=== PATIENT | female | born 1960 | race Caucasian/White ===

== ENCOUNTER 2020-02-17 09:47 | Outpatient (REF) | payer OTHER, SELFPAY ==
[2020-02-17 10:35] LABS: Glucose Urine UA NEG (NEG); Leukocyte Esterase Urine 3+ (NEG); Nitrite Urine POS (NEG); Specific Gravity - Urine 1.025 (1.005-1.025); Urine Blood 2+ (NEG); Urine Ketones NEG (NEG); Urine Protein TRACE MG/DL (NEG-TRACE)
[2020-02-17 10:40] LABS: Appearance Urine CLOUDY; Color Urine YELLOW
[2020-02-17 11:02] LABS: Bacteria Urine 1+ /LPF; Squamous Epithelial Cell Urine 1+ /LPF; WBC Urine TNTC /HPF (0-4)
== END 2020-02-17 09:48 | disposition home or self-care (01) ==
LOC: HO.LAB 09:47
PROVIDERS: Visit Provider Internal Medicine
DX: R30.0 Dysuria (principal)
CPT/HCPCS: 81001; 87086; 87088; 87186

== ENCOUNTER 2020-05-04 09:56 | Outpatient (REF) | payer OTHER, SELFPAY ==
--- NOTE | ~2020-05-04 | MM_ITS ---
EXAMINATION: MM SCREENING DIGITAL BREAST TOMOSYNTHESIS, BILATERAL CLINICAL INFORMATION: Screening. Asymptomatic. The lifetime risk of breast cancer based on the Tyrer-Cuzick Model is 8%. COMPARISON: Mammography: 04/29/2019, 10/12/2016, 10/11/2015, 11/21/2013 TECHNIQUE: Digital breast tomosynthesis is performed in both the craniocaudal and mediolateral oblique views along with computer-aided detection (CAD). Synthesized 2D images are generated from the tomosynthesis. FINDINGS: There are scattered areas of fibroglandular density (ACR BI-RADS breast composition Category b). There are no significant masses, abnormal calcifications, or other abnormalities. Axillary nodes are stable. The skin contours are smooth. MM/MM tomosynthesis screening BI IMPRESSION: No mammographic evidence of malignancy. ASSESSMENT: BI-RADS 2: Benign RECOMMENDATION: Routine annual mammography screening. This patient's information was entered into a reminder system with a target due date for their next mammogram.
== END 2020-05-04 09:57 | disposition home or self-care (01) ==
LOC: HO.MAMMO 09:56
PROVIDERS: PCP Internal Medicine; Visit Provider Internal Medicine
DX: Z12.31 Encounter for screening mammogram for malignant neoplasm of breast (principal)
CPT/HCPCS: 77063; 77067

== ENCOUNTER 2021-05-17 07:57 | Outpatient (REF) | payer OTHER, SELFPAY ==
--- NOTE | ~2021-05-17 | MM_ITS ---
EXAMINATION: MM SCREENING DIGITAL BREAST TOMOSYNTHESIS, BILATERAL CLINICAL INFORMATION: Screening. Asymptomatic. The lifetime risk of breast cancer based on the Tyrer-Cuzick Model is 6%. COMPARISON: Mammography: 05/04/2020, 04/29/2019, 10/12/2016 TECHNIQUE: Digital breast tomosynthesis is performed in both the craniocaudal and mediolateral oblique views along with computer-aided detection (CAD). Synthesized 2D images are generated from the tomosynthesis. FINDINGS: There are scattered areas of fibroglandular density (ACR BI-RADS breast composition Category b). There are no significant masses, abnormal calcifications, or other abnormalities. Parenchymal pattern is similar to prior studies. No developing density. Skin contours are smooth. MM/MM tomosynthesis screening BI IMPRESSION: There are no significant changes from prior study. ASSESSMENT: BI-RADS 1: Negative RECOMMENDATION: Routine annual mammography screening. This patient's information was entered into a reminder system with a target due date for their next mammogram.
== END 2021-05-17 07:58 | disposition home or self-care (01) ==
LOC: HO.MAMMO 07:57
PROVIDERS: PCP Internal Medicine; Visit Provider Internal Medicine
DX: Z12.31 Encounter for screening mammogram for malignant neoplasm of breast (principal)
CPT/HCPCS: 77063; 77067

== ENCOUNTER 2022-05-23 07:33 | Outpatient (REF) | payer OTHER, SELFPAY ==
--- NOTE | ~2022-05-23 | MM_ITS ---
EXAMINATION: MM SCREENING DIGITAL BREAST TOMOSYNTHESIS, BILATERAL CLINICAL INFORMATION: Screening. Asymptomatic. The lifetime risk of breast cancer based on the Tyrer-Cuzick Model is 6%. COMPARISON: Mammography: 05/17/2021, 05/04/2020, 04/29/2019 TECHNIQUE: Digital breast tomosynthesis is performed in both the craniocaudal and mediolateral oblique views along with computer-aided detection (CAD). Synthesized 2D images are generated from the tomosynthesis. Additional left view is provided. FINDINGS: There are scattered areas of fibroglandular density (ACR BI-RADS breast composition Category b). There are no significant masses, abnormal calcifications, or other abnormalities. Parenchymal pattern is similar to prior studies. There is no developing density or architectural abnormality. The axilla and skin contours are unremarkable. No significant changes. MM/MM tomosynthesis screening BI IMPRESSION: No mammographic evidence of malignancy. ASSESSMENT: BI-RADS 1: Negative RECOMMENDATION: Routine annual mammography screening. This patient's information was entered into a reminder system with a target due date for their next mammogram.
== END 2022-05-23 07:34 | disposition home or self-care (01) ==
LOC: HO.MAMMO 07:33
PROVIDERS: Visit Provider Internal Medicine
DX: Z12.31 Encounter for screening mammogram for malignant neoplasm of breast (principal)
CPT/HCPCS: 77063; 77067

== ENCOUNTER 2022-10-19 08:05 | Outpatient (AMB) | payer OTHER, SELFPAY ==
[2022-10-19 08:10] VITALS: BP 142/82; PULSE 74; TEMP 36.3; O2SAT 98; BMI 35.6
--- NOTE | 2022-10-19 08:10 | AM.OFFWIN_ITS ---
Intake Vital Signs 10/19/22 08:10 Height 5 ft 2 in Weight 194 lb 8 oz BMI 35.6 BP 142/82 H Blood Pressure Location Rt brachial Position Sitting Pulse 74 Pulse Source Pulse Oximeter Temp 97.4 F Temp Source Temporal Artery Scan Pulse Oximetry (%) 98 Intake Visit Reasons: EP, scalp itchiness Intake Note: pt is here for scalp itchiness all weekend, tried dry scalp shampoo with no relief Patient Tobacco Use Status: Former Tobacco user Allergies No Known Allergies [No Known Allergies*] Allergy (Verified 10/19/22 08:15) Do you need a note to return to daycare/school/sports/work: Yes HPI HPI Comments History of Present Illness Details 62 year female who presents with itchiness to the scalp. Suggestion to different shampoos [facility] Medical History GERD (gastroesophageal reflux disease) Surgical History History of gynecologic surgery History of gynecologic surgery Family History Father No problems noted. Mother Arthritis Maternal Grandmother Diabetes Sister Arthritis Father Medical history unknown Mother Arthritis Maternal Grandmother Diabetes Sister Arthritis Social History Housing: Apartment Patient Tobacco Use Status: Former Tobacco user service: No Current occupational status: employed Cognitive needs: No Hearing needs: No Vision needs: Yes Review of Systems Const All systems reviewed & are unremarkable except as noted in HPI and below Skin/Breast Details: He returns Physical Exam Vital Signs: Last Vital Signs Temp 97.4 F 10/19/22 08:10 Pulse 74 10/19/22 08:10 BP 142/82 H 10/19/22 08:10 Pulse Ox 98 10/19/22 08:10 BMI result Body Mass Index 35.6 Const General: no acute distress, alert and awake Skin Other: scalp with dry patches in crusting Assessment & Plan Assessment & Plan (1) Dermatitis: Code(s): L30.9 - Dermatitis, unspecified Plan patient's exam resembles psoriasis of the scalp. Will prescribe clobetasol shampoo and recommend follow-up with Dermatology. Discharge instructions, follow up and treatment are discussed with patient in my usual fashion. Alternatives in treatment are also discussed. The patient will return for worsening symptoms or as needed. Advised that any labs/imaging ordered will be followed up on and contact made if further treatment needed. Counseled that patient's condition may require further evaluation and/or treatment. Symptoms of concern for worsening disorder discussed in detail in my customary manner. Patient does verbalize understanding of the plan, there are no apparent barriers to communication. The patient is given the opportunity to ask questions and have them answered to his/her satisfaction Medications: New clobetasol 0.05% 1 appl topical DAILY 50 mL 0RF Coding Level of Care Code Est Pt Level 3 (07225) Diagnoses Dermatitis L30.9
== END 2022-10-19 08:34 | disposition home or self-care (01) ==
PROVIDERS: PCP Internal Medicine; Visit Provider Physician Assistant
DX: L30.9 Dermatitis, unspecified (principal)
CPT/HCPCS: 99213

== ENCOUNTER 2022-12-14 08:07 | Outpatient (AMB) | payer OTHER, SELFPAY ==
--- NOTE | 2022-12-14 08:10 | AM.OFFWIN_ITS ---
Intake Vital Signs 12/14/22 08:18 Height 5 ft 2 in BMI Reason not done Patient refused/unable BP 130/80 Blood Pressure Location Lt brachial Position Sitting Pulse 75 Pulse Source Pulse Oximeter Temp 97.5 F Temp Source Temporal Artery Scan Pulse Oximetry (%) 96 Oxygen Delivery Method Room Air Intake Visit Reasons: EP Scabs on head Intake Note: pt is here for c/o scabs on head Patient Tobacco Use Status: Former Tobacco user Allergies No Known Allergies [No Known Allergies*] Allergy (Verified 10/19/22 08:15) Do you need a note to return to daycare/school/sports/work: Yes HPI HPI Comments History of Present Illness Details 0916 62-year-old female presents with dry yvonne ques on her head, upper extremities back has history of psoriasis is not getting better with topical medications. Tells me they have been present for a while in the do not seem to be getting better. Denies fevers, chills, new medications, numbness, tingling. Physical exam with dry plaques with scales to bilateral upper extremities, scalp, back. Likely dermatitis vs psoriasis vs contact dermatitis unlikley SJS, TEN Plan- dc w/ prednisone, hydrocortisone cream. Educated patient on diagnosis and treatment plan, answered all question, patient verbalizes understanding. At this time patient will be discharged home, advised to return with new or worsening symptoms. Educated on worrisome signs and symptoms and when to return. At this time I feel comfortable discharge home. [facility] Medical History GERD (gastroesophageal reflux disease) Surgical History History of gynecologic surgery History of gynecologic surgery Family History Father No problems noted. Mother Arthritis Maternal Grandmother Diabetes Sister Arthritis Father Medical history unknown Mother Arthritis Maternal Grandmother Diabetes Sister Arthritis Social History Housing: Apartment Patient Tobacco Use Status: Former Tobacco user service: No Current occupational status: employed Cognitive needs: No Hearing needs: No Vision needs: Yes Review of Systems Const Details: Constitutional : No Weight loss, No Fever, No Chills, No Fatigue, No Malaise ENT/Mouth : No sore throat, No Rhinorrhea Eyes: No Eye Pain, No Swelling, No Redness Cardiovascular : No Chest Pain, No SOB, No Dyspnea on Exertion, No Orthopnea, No Edema, No Palpitations Respiratory : No Cough, No Sputum, No Wheezing Gastrointestinal : No Nausea, No Vomiting, No Diarrhea, No Constipation, No abdominal Pain, No Hematochezia, No Melena Genitourinary : No Dysuria, No Urinary Frequency, No Hematuria, Musculoskeletal : No joint pain, No Myalgias, No Joint Swelling Skin : + Skin Lesions, No rash Neuro : No Weakness, No Numbness, No Dizziness, No Headache Psych : No Anxiety/Panic, No Depression All other systems reviewed and are negative All systems reviewed & are unremarkable except as noted in HPI and below Physical Exam Vital Signs: Last Vital Signs Temp 97.5 F 12/14/22 08:18 Pulse 75 12/14/22 08:18 BP 130/80 12/14/22 08:18 Pulse Ox 96 12/14/22 08:18 Oxygen Delivery Method Room Air 12/14/22 08:18 vss Appearance: Alert.? Oriented X3.? No acute distress.? Head: Normocephalic, atraumatic, no step-offs or deformities Eyes: Pupils equal, round and reactive to light.? ENT: Pharynx normal.? Neck: Normal inspection.? Neck supple.? CVS: Normal heart rate and rhythm.? Pulses normal.? Respiratory: No respiratory distress.? Breath sounds normal.? Abdomen: Soft and nontender.? Skin: Skin warm and dry.? Normal skin color.? Normal skin turgor.? + dry plaques to UE, scalp and back. Extremities: No lower extremity edema.? No calf ttp. 5/5 strength to bilateral upper and lower extremities Neuro: Oriented X 3.? No motor deficit.? No sensory deficit. CN 2-12 intact Assessment & Plan Assessment & Plan (1) Psoriasis: Code(s): L40.9 - Psoriasis, unspecified Plan Take your medications as prescribed. If you were prescribed antibiotics today, it is important that you take your medication to their entirety, do not skip any doses, do not finish them early. Follow-up with your primary care provider this week. Return to the emergency department with new or worsening symptoms. Such as fevers, chills, chest pain, shortness of breath, nausea, vomiting, dizziness, headache, vision changes, lethargy In case of emergency call 911 Medications: New prednisone 40 mg (2 x 20 mg) PO DAILY 5 days 10 tabs 0RF hydrocortisone 1% (Anti-Itch (hydrocortisone)) 1 appl topical TID PRN 120 mL 0RF skin irritation Coding Level of Care Code Est Pt Level 3 (76691) Diagnoses Psoriasis L40.9
[2022-12-14 08:18] VITALS: BP 130/80; PULSE 75; TEMP 36.4; O2SAT 96
== END 2022-12-14 09:29 | disposition home or self-care (01) ==
PROVIDERS: PCP Internal Medicine; Visit Provider Physician Assistant
DX: L40.9 Psoriasis, unspecified (principal)
CPT/HCPCS: 99213

== ENCOUNTER 2023-03-22 09:57 | Outpatient (AMB) | payer OTHER, SELFPAY ==
--- NOTE | 2023-03-22 10:07 | A.OFFPC_ITS ---
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: No Accompanied by: Self / Same As Patient Allergies No Known Allergies [No Known Allergies*] Allergy (Verified 03/22/23 10:23) Medication List - Last Reconciled 03/22/23 by Maya Paulson MD clobetasol 0.05% 1 appl topical DAILY hydrocortisone 1% (Anti-Itch (hydrocortisone)) 1 appl topical TID PRN meloxicam 15 mg PO DAILY PRN 90 days omeprazole 20 mg PO DAILY 90 days Tobacco use date assessed: 03/22/23 Dental Screening Dental Screen Date: 03/22/23 Did you have a dental visit in the last 12 months?: Yes Did you have a dental problem in the last 6 months where you did not have access to dental care?: No Was dental information given to patient?: Patient has dentist HPI HPI Comments History of Present Illness0 Details This is a 62-year-old female that comes for her physical exam. Mammogram done 2022. She does not want a colonoscopy. Once Cologuard. Last Pap smear was over 5 years ago and will be sent again to OBGYN. No chest pain or shortness of breath. [facility] Medical History GERD (gastroesophageal reflux disease) Surgical History History of gynecologic surgery History of gynecologic surgery Family History Father No problems noted. Mother Arthritis Maternal Grandmother Diabetes Sister Arthritis Father Medical history unknown Mother Arthritis Maternal Grandmother Diabetes Sister Arthritis Social History Housing: Apartment Patient Tobacco Use Status: Former Tobacco user Tobacco use type: Cigarette e-Cigarette/Vaping Use: Never Used Second Hand Smoke Exposure: No service: No Current occupational status: employed Current occupational exposures/hazards: No Cognitive needs: No Hearing needs: No Vision needs: Yes Questionnaire PHQ-9 Over the last 2 weeks, how often have you been bothered by any of the following problems? 1. Little interest or pleasure in doing things: not at all 2. Feeling down, depressed, or hopeless: not at all 3. Trouble falling or staying asleep, or sleeping too much: not at all 4. Feeling tired or having little energy: not at all 5. Poor appetite or overeating: not at all 6. Feeling bad about yourself - or that you are a failure or have let yourself or your family down: not at all 7. Trouble concentrating on things, such as reading the newspaper or watching television: not at all 8. Moving or speaking so slowly that other people could have noticed. Or the opposite - being so fidgety or restless that you have been moving around a lot more than usual: not at all 9. Thoughts that you would be better off or of hurting yourself in some way: not at all Total score: 0 Depression Screening Interpretation: Negative Depression Screening Done: Yes 52948 - PHQ-9 Billing: Yes Source: Developed by Drs. Reilly Gleason, Carlie Lazar, Mao Melgoza and colleagues, with an educational abby from [employer]. Thrive Questionnaire Date Thrive assessed: 03/22/23 I am a: Patient What is your living situation today?: I have a steady place to live Within the past 12 months, did the food you bought not last and you didn't have the money to get more?: Never true Within the past 12 months, did you worry whether your food would run out before you got money to buy more?: Never true Do you have trouble paying for medicines?: No Do you have trouble getting transportation to medical appointments?: No Do you have trouble paying your heating and electricity bill?: No Do you have trouble taking care of your child, family member or friend?: No Do you have trouble with day-to-day activities such as bathing, preparing meals, shopping, managing finances, etc.?: No Are you currently unemployed and looking for a job?: No Are you interested in more education?: No Please select the resources that you would like help with: None Currently or been in a relationship where the following occur: no concerns reported THRIVE Score: 0 AUDIT C Alcohol Use Questionnaire (AUDIT-C) 1. How often do you have a drink containing alcohol?: Never Total Score: 0 HANNA-7 AMB Questionnaire HANNA-7 Date HANNA - 7 assessed: 03/22/23 Feeling nervous, anxious, or on edge: 0 = Not at all Not being able to stop or control worryin = Not at all Worrying too much about different things: 0 = Not at all Trouble relaxin = Not at all Being so restless that it is hard to sit still: 0 = Not at all Becoming easily annoyed or irritable: 0 = Not at all Feeling afraid as if something awful might happen: 0 = Not at all Total HANNA-7 score (0-4 normal; 5-9 mild; 10-14 moderate; 15-21 severe): 0 Source: Developed by Drs. Reilly Gleason, Carlie Lazar, Mao Melgoza and colleagues, with an educational abby from [employer]. HANNA-7 Assessment Billing HANNA-7 Assessment Tool: HANNA-7 Assessment 05912 Review of Systems Const All systems reviewed & are unremarkable except as noted in HPI and below Eyes Reports no additional complaints, Denies change in vision and Denies other visual disturbances Card Denies chest pain at rest, Denies chest pain with activity, Denies edema, Denies irregular heart rhythm, Denies claudication, Denies dyspnea, Denies dyspnea on exertion, Denies orthopnea, Denies paroxysmal nocturnal dyspnea and Denies slow heart rate Resp Denies cough, Denies dyspnea and Denies dyspnea on exertion GI Denies abdominal pain, Denies change in bowel habits, Denies excessive flatus, Denies nausea and Denies vomiting Denies urinary incontinence, Denies urinary hesitancy and Denies urinary urgency Musc Denies abnormal gait, Denies atrophy, Denies deformity and Denies limited range of motion Skin/Breast Denies bleeding lesions, Denies changing lesions and Denies rash Neuro Denies abnormal gait, Denies behavioral changes, Denies confusion and Denies lack of coordination Psych Denies behavioral changes and Denies confusion Physical exam (Primary Care) Vital Signs: Last Vital Signs BP 160/90 H 03/22/23 11:22 BMI result Body Mass Index 36.6 Tobacco/Smoking Status: Tobacco use Status Tobacco use date assessed 03/22/23 03/22/23 10:13 Patient Tobacco Use Status Former Tobacco user 03/22/23 10:08 Tobacco use type Cigarette 03/22/23 10:13 e-Cigarette/Vaping Use Never Used 03/22/23 10:13 PHQ-9: PHQ-9 Score PHQ-9: Total score 0 03/22/23 11:23 Depression Screening Interpretation: Negative Thrive Assessment: Date of Thrive Assessment Date Thrive assessed 03/22/23 03/22/23 10:13 Currently or been in a relationship where the following occur: no concerns reported Const General: No confusion Orientation/consciousness: patient oriented x3 and No confusion HENMT Head: Yes normal to inspection, Yes normocephalic and Yes atraumatic Ears: external ears normal Eyes General: appearance normal, both eyes and all related structures Eyelids: Yes eyelids normal Conjunctivae: conjunctivae normal Neck Neck: Yes normal visual inspection and Yes supple Resp Effort & Inspection: normal respiratory effort Auscultation: clear to auscultation bilaterally Cardio Jugular venous distension: no JVD Rate: regular rate Rhythm: regular rhythm Heart sounds: S1 normal heart sound present and S2 normal heart sound present GI Inspection: Yes normal to inspection Palpation (GI): Soft to palpation and nontender Auscultation: normal bowel sounds Skin General skin exam: no rashes or lesions noted Neuro General: patient oriented x3, no focal motor deficits and No confusion Extrem General: Yes full ROM Psych Appearance: grossly normal Assessment and Plan Assessment & Plan (1) Adult general medical exam: Code(s): Z00.00 - Encounter for general adult medical examination without abnormal findings Plan: Repeat in a year. Orders: Orders T Spot TB Today Z11.1 - Encounter for screening for respiratory tuberculosis Lipid Panel Today Z00.00 - Encounter for general adult medical examination without abnormal findings Comprehensive [place]. Panel Fast Today Z00.00 - Encounter for general adult medical examination without abnormal findings Referrals Cologuard Test Z12.11 - Encounter for screening for malignant neoplasm of colon, Z12.12 - Encounter for screening for malignant neoplasm of rectum [employer]PERATOR Referral Z12.4 - Encounter for screening for malignant neoplasm of cervix Coding Level of Care Code Est Pt Prev Care 40-64y(89790) Diagnoses Adult general medical exam Z00.00 Additional Codes HANNA-7 Assessment Billing - HANNA-7 Assessment Tool: HANNA-7 Assessment 59935 ([id number]) Time Spent (min) 33
[2023-03-22 10:08] VITALS: BP 166/90; BMI 36.6
[2023-03-22 11:22] VITALS: BP 160/90
== END 2023-03-22 10:33 | disposition home or self-care (01) ==
PROVIDERS: Visit Provider Internal Medicine
DX: Z00.00 Encounter for general adult medical examination without abnormal findings (principal)
CPT/HCPCS: 99396

== ENCOUNTER 2023-03-29 08:26 | Outpatient (REF) | payer OTHER, SELFPAY ==
[2023-03-29 08:45] LABS: MANUAL DIFF FLAG NO
[2023-03-29 09:08] LABS: Basophils Percent Auto 0.5 % (0-2); Eosinophils Absolute Auto 0.1 X10*3/uL (0.0-0.4); Eosinophils Percent Auto 1.3 % (0-4); Hemoglobin 12.5 g/dl (12.0-16.0); Imm Gran Abs Auto 0.02 X10*3/uL (0.00-0.03); Imm Gran Pct Auto 0.4 % (0.0-0.4); Lymphocytes Absolute Auto 2.5 X10*3/uL (1.2-4.9); Lymphocytes Percent Auto 44.1 % (20-40); Mean Corpuscular HGB Conc 33.8 g/dl (31.0-35.0); Mean Corpuscular Hemoglobin 30.9 pg (27.0-33.0); Mean Corpuscular Volume 91.4 fL (80.0-98.0); Mean Platelet Volume 10.1 fL (9.4-12.3); Monocytes Absolute Auto 0.6 X10*3/uL (0.1-1.2); Monocytes Percent Auto 10.6 % (2-11); Neutrophils Absolute Auto 2.4 x10*3/uL (2.0-8.3); Neutrophils Percent Auto 43.1 % (45-73); Platelet Count 190 X10*3/uL (160-400); Red Blood Count 4.05 X10*6/uL (4.20-5.50); Red Cell Distribution Width 12.5 % (11.0-16.0); White Blood Count 5.6 X10*3/uL (4.8-10.8)
[2023-03-29 09:40] LABS: Alanine Aminotransferase 52 U/L (0-31); Alkaline Phosphatase 78 U/L (39-117); Anion Gap 10 (12-20); Aspartate Amino Transferase 37 U/L (5-31); Bilirubin Direct 0.1 mg/dL (0.0-0.5); Bilirubin Total 0.4 mg/dL (0.0-1.0); Blood Urea Nitrogen 13 mg/dL (9-16); Calcium 9.6 mg/dL (8.4-10.2); Carbon Dioxide 28 mmol/L (22-29); Chloride 105 mmol/L (96-108); Cholesterol 204 mg/dL (<200); Estimated Glomerular Filt Rate > 60; Glucose Random 106 mg/dL (60-115); HDL Cholesterol 46 mg/dL (>40); LDL Cholesterol Calculated 142 mg/dL (<100); Potassium 4.3 mmol/L (3.3-5.1); Sodium 139 mmol/L (135-145); Total Protein 7.4 g/dL (6.5-8.0); Triglycerides 81 mg/dL (<150)
[2023-03-29 09:54] LABS: HBS Num1 107.01 mIU/mL (0-7.99); HBsAGNum1 0.33 S/CO (0.00-0.99); Hepatitis B Core Antibody Nonreactive (Nonreactive); Hepatitis B Surface Antigen Negative (Negative); ~HepC Num1 0.16 S/CO (0.00-0.79); ~Hepatitis B Surface Antibody REACTIVE (Nonreactive); ~Hepatitis C Antibody Nonreactive (Nonreactive)
[2023-03-29 11:02] LABS: Reflex LDLD? No
[2023-03-31 20:48] LABS: TS Negative Control Passed; TS Panel A 0; TS Panel B 0; TS Positive Control Passed; TSpotTB Negative (Negative)
== END 2023-03-29 08:27 | disposition home or self-care (01) ==
LOC: HO.LAB 08:26
PROVIDERS: Dermatology; Visit Provider Physician Assistant Medical
DX: L40.0 Psoriasis vulgaris (principal); E66.9 Obesity, unspecified; Z79.899 Other long term (current) drug therapy
CPT/HCPCS: 36415; 80048; 80061; 80076; 85025; 86481; 86704; 86706; 86803; 87340

== ENCOUNTER 2023-05-01 08:49 | Outpatient (REF) | payer OTHER, SELFPAY ==
[2023-05-01 18:09] LABS: CT PCR NOT DETECTED (Not Detect.); NG PCR NOT DETECTED (Not Detect.)
[2023-05-09 09:29] LABS: HPV 16 RNA NOT DETECTED (NOT DETECTED); HPV mRNA E6/E7 rflx Detected (Not Detected)
== END 2023-05-01 08:50 | disposition home or self-care (01) ==
LOC: HO.LNP 08:49
PROVIDERS: PCP Internal Medicine; Visit Provider Advanced Practice Midwife
DX: Z01.419 Encounter for gynecological examination (general) (routine) without abnormal findings (principal); Z20.2 Contact with and (suspected) exposure to infections with a predominantly sexual mode of transmission
CPT/HCPCS: 0353U; 87624; 87625; 88142; 99386

== ENCOUNTER 2023-05-01 08:49 | Outpatient (AMB) | payer OTHER, SELFPAY ==
--- NOTE | 2023-05-01 08:58 | A.OFFVIS_ITS ---
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 She is doing well with no concerns. Under care with a morals squad police officer for her psoriasis. Attempting to eat a healthy diet with calcium and vitamin D and stays active with exercise. Currently sexually active. Denies any vaginal dryness or irritation. STI testing offered; she accepts. Declines STD blood work. Last pap smear; 2003. Last mammogram; 2022. Colonoscopy is UTD. Denies any family history of breast, ovarian or colon cancer. [facility] Medical History Psoriasis GERD (gastroesophageal reflux disease) Surgical History History of gynecologic surgery History of gynecologic surgery Family History Father No problems noted. Mother Arthritis Maternal Grandmother Diabetes Sister Arthritis Father Medical history unknown Mother Arthritis Maternal Grandmother Diabetes Sister Arthritis Social History Housing: Apartment Patient Tobacco Use Status: Former Tobacco user Tobacco use type: Cigarette e-Cigarette/Vaping Use: Never Used Second Hand Smoke Exposure: No service: No Current occupational status: employed Current occupational exposures/hazards: No Cognitive needs: No Hearing needs: No Vision needs: Yes Female Reproductive History Menstrual Menopause type: natural Total pregnancies: 3 Full term: 3 Number of Living Children: 3 Date of last pap smear: 12/03/03 (DIMITRIS) History of abnormal pap smear: Yes (04/16 colpo ARNOLD 1) Date of Mammogram: 05/23/22 (Birad 1) Review of Systems Const All systems reviewed & are unremarkable except as noted in HPI and below Reports as per HPI Eyes Reports no additional complaints ENT Reports no additional complaints Card Reports no additional complaints Resp Reports no additional complaints GI Reports as per HPI and Reports no additional complaints Reports as per HPI Musc Reports no additional complaints Skin/Breast Reports as per HPI Neuro Reports no additional complaints Psych Reports no additional complaints Endo Reports no additional complaints Marv/Lymph Reports no additional complaints Aller/Immun Reports no additional complaints Physical Exam Vital Signs: Last Vital Signs BP 132/82 05/01/23 09:01 BMI result Body Mass Index 36.4 Const General: cooperative, healthy appearing, no acute distress, well developed and alert Orientation/consciousness: patient oriented x3 HEENT Head: Yes normal to inspection Eyes General: appearance normal, both eyes and all related structures Neck Neck: Yes normal visual inspection Thyroid: Thyroid normal Chest Chest palpation & inspection: normal inspection of the chest and other (no puck ering, dimpling, peau de orange, retraction, discharge, masses) Breast/axilla inspection: normal inspection of the breasts Breast/axilla palpation: normal palpation of the breasts Resp Effort & Inspection: normal respiratory effort GI Inspection: Yes normal to inspection Palpation (GI): Soft to palpation Rectal Exam - Female: deferred Other: Psoriasis plaques of the vulva General: Yes bladder normal to palpation External Female Exam: normal external appearance and normal appearance of the urethra Speculum Exam - Vagina: normal appearance of the vagina, normal palpation, normal vaginal discharge and vagina atrophic Speculum Exam - Cervix: normal appearance of the cervix, normal palpation and Other cervical findings present (Bled slightly with Pap) Bimanual exam- vagina & uterus: normal bimanual exam, normal palpation, uterine size normal, bladder normal to palpation, normal palpation and non-tender Bimanual Exam- Adnexa, other: no masses Skin General skin exam: no rashes or lesions noted Rashes: no rashes Neuro General: patient oriented x3 Cognition (Neuro): normal cognition Extrem General: Yes normal to inspection Psych Attitude: cooperative Thought process: Normal thought process present Assessment & Plan Assessment & Plan (1) Encounter for well woman exam with routine gynecological exam: Code(s): Z01.419 - Encounter for gynecological examination (general) (routine) without abnormal findings (2) Psoriasis: Code(s): L40.9 - Psoriasis, unspecified Plan Discussed: Current recommendations for pap smears per ASCCP guidelines. Breast awareness, periodic self breast exams and yearly mammogram. Maintain a healthy lifestyle, well balanced diet including Calcium 1,200 mg and Vitamin D 600 IU daily, and routine exercise. Follow-up with Dr. Tena for psoriasis treatment. Contact the office with any postmenopausal bleeding. Patient verbalizes understanding and agrees to the plan of care. She was given opportunity to ask questions and all questions were answered to the best of my ability. RTO in 1 year for annual cryolite recovery operator exam. This note is constructed using voice recognition software. While every effort has been made to ensure accuracy, asbestos shingle inspector errors may have been included. Coding Level of Care Code New Pt Prev Care 40-64y(31503) Diagnoses Encounter for well woman exam with routine gynecological exam Z01.419 Psoriasis L40.9
[2023-05-01 09:01] VITALS: BP 132/82; BMI 36.4
== END 2023-05-01 09:25 | disposition home or self-care (01) ==
LOC: HO.HWS 08:49
PROVIDERS: PCP Internal Medicine; Visit Provider Advanced Practice Midwife
DX: Z01.419 Encounter for gynecological examination (general) (routine) without abnormal findings (principal); L40.9 Psoriasis, unspecified
CPT/HCPCS: 99386

== ENCOUNTER 2023-05-31 07:22 | Outpatient (REF) | payer OTHER, SELFPAY | END 2023-05-31 07:23 | disposition home or self-care (01) | LOC: HO.MAMMO 07:22 | PROVIDERS: PCP Internal Medicine; Visit Provider Internal Medicine | DX: Z12.31 Encounter for screening mammogram for malignant neoplasm of breast (principal) | CPT/HCPCS: 77063; 77067 ==

== ENCOUNTER → 2023-05-31 07:30 | Outpatient (BNV) | payer OTHER, SELFPAY | PROVIDERS: PCP Internal Medicine; Visit Provider Radiology Diagnostic Radiology | DX: Z12.31 Encounter for screening mammogram for malignant neoplasm of breast (principal) | CPT/HCPCS: 77063; 77067 ==

== ENCOUNTER 2024-06-19 13:30 | Outpatient (REF) | payer OTHER, SELFPAY | END 2024-06-19 13:31 | disposition home or self-care (01) | LOC: HO.MAMMO 13:30 | PROVIDERS: PCP Internal Medicine; Visit Provider Internal Medicine | DX: Z12.31 Encounter for screening mammogram for malignant neoplasm of breast (principal) | CPT/HCPCS: 77063; 77067 ==

== ENCOUNTER → 2024-06-19 14:00 | Outpatient (BNV) | payer OTHER, SELFPAY | PROVIDERS: PCP Internal Medicine; Visit Provider Internal Medicine | DX: Z12.31 Encounter for screening mammogram for malignant neoplasm of breast (principal) | CPT/HCPCS: 77063; 77067 ==

== ENCOUNTER 2024-06-26 09:33 | Outpatient (REF) | payer OTHER, SELFPAY ==
[2024-06-30 04:39] LABS: TS Negative Control Passed; TS Panel A 0; TS Panel B 0; TS Positive Control Passed; TSpotTB Negative (Negative)
== END 2024-06-26 09:34 | disposition home or self-care (01) ==
LOC: HO.LAB 09:33
PROVIDERS: PCP Internal Medicine; Visit Provider Physician Assistant Medical
DX: L40.0 Psoriasis vulgaris (principal)
CPT/HCPCS: 36415; 86481

== ENCOUNTER 2024-11-27 13:48 | Outpatient (AMB) | payer OTHER, SELFPAY ==
--- NOTE | 2024-11-27 13:50 | MHC.OFFVIS ---
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 [employer] concerns: labia itching. Currently not sexually active. STI testing offered; she declines. Attempting to eat a healthy. Last pap smear; 2023, negative cytology, positive HPV. Last mammogram; 2024. Colonoscopy is not UTD. Denies any family history of breast, ovarian or colon cancer. [facility] Medical History Cervical low risk human papillomavirus (HPV) DNA test positive Psoriasis GERD (gastroesophageal reflux disease) Surgical History History of endometrial ablation Family History Father No problems noted. 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 Current occupational exposures/hazards: No Sexual orientation: Straight/Heterosexual Gender identity: Female Cognitive needs: No Hearing needs: No Vision needs: Yes Female Reproductive History Menstrual Menopause type: natural Total pregnancies: 3 Full term: 3 Number of Living Children: 3 Date of last pap smear: 05/03/23 (+HPV) History of abnormal pap smear: Yes (11/15 DIMITRIS / Colpo ARNOLD 1) Date of Mammogram: 06/19/24 (Birad 1) Review of Systems Const All systems reviewed & are unremarkable except as noted in HPI and below Reports as per HPI Eyes Reports no additional complaints ENT Reports no additional complaints Card Reports no additional complaints Resp Reports no additional complaints GI Reports as per HPI and Reports no additional complaints Reports as per HPI Musc Reports no additional complaints Skin/Breast Reports as per HPI Neuro Reports no additional complaints Psych Reports no additional complaints Endo Reports no additional complaints Marv/Lymph Reports no additional complaints Aller/Immun Reports no additional complaints Physical Exam Vital Signs: Last Vital Signs BP 162/90 H 11/27/24 13:52 BMI result Body Mass Index 35.7 Const General: cooperative, healthy appearing, no acute distress, well developed and alert Orientation/consciousness: patient oriented x3 HEENT Head: Yes normal to inspection Eyes General: appearance normal, both eyes and all related structures Neck Neck: Yes normal visual inspection Thyroid: Thyroid normal Chest Chest palpation & inspection: normal inspection of the chest and other (no puckering, dimpling, peau de orange, retraction, discharge, masses) Breast/axilla inspection: normal inspection of the breasts Breast/axilla palpation: normal palpation of the breasts Resp Effort & Inspection: normal respiratory effort GI Inspection: Yes normal to inspection Palpation (GI): Soft to palpation Rectal Exam - Female: deferred General: Yes bladder normal to palpation External Female Exam: normal external appearance and normal appearance of the urethra Speculum Exam - Vagina: normal appearance of the vagina, normal palpation, normal vaginal discharge and vagina atrophic Speculum Exam - Cervix: normal appearance of the cervix and normal palpation Bimanual exam- vagina & uterus: normal bimanual exam, normal palpation, uterine size normal, bladder normal to palpation, normal palpation and non-tender Bimanual Exam- Adnexa, other: no masses Skin General skin exam: no rashes or lesions noted Rashes: no rashes Neuro General: patient oriented x3 Cognition (Neuro): normal cognition Extrem General: Yes normal to inspection Psych Attitude: cooperative Thought process: Normal thought process present Assessment & Plan Assessment & Plan (1) Encounter for well woman exam with routine gynecological exam: Code(s): Z01.419 - Encounter for gynecological examination (general) (routine) without abnormal findings Category: Medical Plan: Discussed: Current recommendations for pap smears per ASCCP guidelines. Breast awareness, periodic self breast exams and yearly mammogram. Maintain a healthy lifestyle, well balanced diet including Calcium 1,200 mg and Vitamin D 600 IU daily, and routine exercise. Contact the office with any postmenopausal bleeding. Patient verbalizes understanding and agrees to the plan of care. She was given opportunity to ask questions and all questions were answered to the best of my ability. RTO in 1 year for annual marketing financial analyst exam. This note is constructed using voice recognition software. While every effort has been made to ensure accuracy, bleacher groundwood pulp errors may have been included. (2) Cervical low risk human papillomavirus (HPV) DNA test positive: Code(s): R87.820 - Cervical low risk human papillomavirus (HPV) DNA test positive Category: Medical Plan Pap obtained await results for final plan of care. Orders: Orders CT NG by PCR Vag/Cerv Today Z01.419 - Encounter for gynecological examination (general) (routine) without abnormal findings Pap Smear Today Z01.419 - Encounter for gynecological examination (general) (routine) without abnormal findings HPV High risk Today Z01.419 - Encounter for gynecological examination (general) (routine) without abnormal findings Bacterial Vaginosis Panel Today Z01.419 - Encounter for gynecological examination (general) (routine) without abnormal findings Coding Level of Care Code Est Pt Prev Care 40-64y(18215) Diagnoses Encounter for well woman exam with routine gynecological exam Z01.419 Cervical low risk human papillomavirus (HPV) DNA test positive R87.820
[2024-11-27 13:52] VITALS: BP 162/90; BMI 35.7
== END 2024-11-27 14:27 | disposition home or self-care (01) ==
LOC: HO.HWS 13:48
PROVIDERS: PCP Internal Medicine; Visit Provider Advanced Practice Midwife
DX: Z01.419 Encounter for gynecological examination (general) (routine) without abnormal findings (principal); R87.820 Cervical low risk human papillomavirus (HPV) DNA test positive
CPT/HCPCS: 99396; 99459

== ENCOUNTER 2024-11-27 13:48 | Outpatient (REF) | payer OTHER, SELFPAY ==
[2024-11-27 16:11] LABS: Bacterial Vaginosis PCR NEGATIVE (Negative); Candida Group PCR DETECTED (Not Detect); Candida glab krusei PCR NOT DETECTED (Not Detect); Trichomonas vaginalis PCR NOT DETECTED (Not Detect)
[2024-11-27 16:43] LABS: CT PCR NOT DETECTED (Not Detect.); NG PCR NOT DETECTED (Not Detect.)
== END 2024-11-27 13:49 | disposition home or self-care (01) ==
LOC: HO.LNP 13:48
PROVIDERS: PCP Internal Medicine; Visit Provider Advanced Practice Midwife
DX: Z01.419 Encounter for gynecological examination (general) (routine) without abnormal findings (principal); Z20.2 Contact with and (suspected) exposure to infections with a predominantly sexual mode of transmission; Z11.51 Encounter for screening for human papillomavirus (HPV); Z87.820 Personal history of traumatic brain injury
CPT/HCPCS: 81515; 87491; 87591; 87626; 88175; 99396

== ENCOUNTER 2024-12-17 12:06 | Outpatient (AMB) | payer OTHER, SELFPAY ==
--- NOTE | 2024-12-17 12:11 | MHC.OFFVIS ---
Vital Signs 12/17/24 12:13 Height 5 ft 2 in Intake Visit Reasons: Colposcopy Intake Note: here for colpo Wilton Weaver Required: Yes Wilton Weaver Services: Wilton Weaver Present Wilton Weaver Name: voice box Information Interpreted: non-clinical & clinical C D Area Supervisor: C D Area Supervisor Present (livan) Accompanied by: Self / Same As Patient Allergies No Known Allergies (No Known Allergies*) Allergy (Verified 12/17/24 12:14) Medication List - Last Reconciled 12/17/24 by Linda Kenney LPN betamethasone dipropionate 0.05% 1 appl topical BID fluconazole 150 mg PO DAILY 1 day omeprazole 20 mg PO DAILY 90 days risankizumab-rzaa (Skyrizi) mg subcut Do you need a note to return to daycare/school/sports/work: No HPI Comments Details: Presenting for abnormal Pap smear showing ASCUS HPV positive, HPV 16/18 negative [facility] Medical History Cervical low risk human papillomavirus (HPV) DNA test positive Psoriasis GERD (gastroesophageal reflux disease) Surgical History History of endometrial ablation Family History Father No problems noted. 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 We thoroughly discussed the procedure itself, including its details, alternatives, and all associated risks. This included but not limited to the following complications such as bleeding, infection, and injury to the vagina, bladder, and vessels, as well as the potential need for transfusion with all its associated risks. Subsequently, the patient sign the consent. Pap smear result: Ascus/HPV positive, HPV 16/18 negative Procedure: During the procedure, the following steps were performed: A speculum was inserted, and acetic acid was applied. Colposcopy was conducted, allowing visualization of the transformation zone. Acetowhite lesions were identified at the 4+ 6+ 9 o'clock position. Cervical biopsies were obtained from the 4+ 6+ 9 o'clock position, followed by an endocervical curettage (ECC). Vaginoscopy of the upper vagina revealed no evidence of aceto-white lesions. Hemostasis was achieved using Monsel solution, and the patient tolerated the procedure well. Post-Procedure Instructions: The patient was advised to promptly contact the office or the after hours answering service or go to the emergency room if experiencing a temperature exceeding 100.4?F, abdominal pain, nausea/vomiting, or bleeding. Additionally, the patient was instructed to abstain from vaginal intercourse and bathtub use. The patient confirmed understanding of these instructions. Discharge Instructions: The patient was instructed to schedule a follow-up appointment in 2 weeks for further evaluation and management. Please note that this note was generated using a voice recognition program, and errors may have occurred during sensor technician. [id number] of cervix including upper vagina with biopsy and ECC Procedure code (CPT) selection complete Assessment & Plan Assessment & Plan (1) ASCUS with positive high risk HPV cervical: Code(s): R87.610 - Atypical squamous cells of undetermined significance on cytologic smear of cervix (ASC-US); R87.810 - Cervical high risk human papillomavirus (HPV) DNA test positive Category: Medical Plan: Discussed with the patient the result of her abnormal pap, its significance, risk of progression, persistence, and regression. the false positive/negative rate of a Pap smear as a screening test in detecting cervical cancer and the indication for a diagnostic test -colposcopy, biopsy, endocervical curettage. The patient verbalized understanding and agreed with the plan, all questions answered. Colposcopy, biopsy /ECC done, see procedure note Orders: Orders AMB Colposcopy Today R87.610 - Atypical squamous cells of undetermined significance on cytologic smear of cervix (ASC-US), R87.810 - Cervical high risk human papillomavirus (HPV) DNA test positive Coding Level of Care Code Procedure Only Diagnoses ASCUS with positive high risk HPV cervical R87.610; R87.810 CPT Codes Colposcopy - CPT: 43283-[id number] of cervix including upper vagina with biopsy and ECC ([id number])
== END 2024-12-17 12:32 | disposition home or self-care (01) ==
LOC: HO.HWS 12:06
PROVIDERS: PCP Internal Medicine; Visit Provider Obstetrics & Gynecology
DX: R87.610 Atypical squamous cells of undetermined significance on cytologic smear of cervix (ASC-US) (principal); R87.810 Cervical high risk human papillomavirus (HPV) DNA test positive
CPT/HCPCS: 57454

== ENCOUNTER 2024-12-17 12:06 | Outpatient (REF) | payer OTHER, SELFPAY | END 2024-12-17 12:07 | disposition home or self-care (01) | LOC: HO.LNP 12:06 | PROVIDERS: PCP Internal Medicine; Visit Provider Obstetrics & Gynecology | DX: R87.610 Atypical squamous cells of undetermined significance on cytologic smear of cervix (ASC-US) (principal); R87.810 Cervical high risk human papillomavirus (HPV) DNA test positive | CPT/HCPCS: 57454; 88305 ==

== ENCOUNTER 2025-01-20 15:08 | Outpatient (AMB) | payer OTHER, SELFPAY ==
[2025-01-20 15:12] VITALS: BP 180/100; BMI 35.7
--- NOTE | 2025-01-20 15:12 | MHC.OFFVIS ---
Vital Signs 01/20/25 15:12 01/20/25 15:28 Height 5 ft 2 in Weight 195 lb BMI 35.7 BP 180/100 H 156/84 H Intake Visit Reasons: Post Colpo Allergies No Known Allergies (No Known Allergies*) Allergy (Verified 12/17/24 12:14) HPI Comments Details: Presenting post colpo for follow-up. The patient is doing well with no complaints. The pathology showed the following: A. Cervix, 4 o'clock, biopsy: Few superficial strips and fragments of endocervical and squamous epithelium within normal limits. B. Cervix, 6 o'clock, biopsy: - Mildly inflamed squamous mucosa with reactive changes. - No endocervical epithelium identified. C. Cervix, 9 o'clock, biopsy: - Squamous mucosa within normal limits. - No endocervical epithelium identified. D. Endocervix, curettage: - Inflamed squamous mucosa with reactive changes. - Endocervical epithelium within normal limits. COMMENT: The findings are concordant with the patient's recent Pap/cytology specimen ([id number]; ASCUS with positive HR HPV) - slide reviewed [facility] Medical History Cervical low risk human papillomavirus (HPV) DNA test positive Psoriasis GERD (gastroesophageal reflux disease) Surgical History History of endometrial ablation Family History Father No problems noted. 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 Current occupational exposures/hazards: No Sexual orientation: Straight/Heterosexual Gender identity: Female Cognitive needs: No Hearing needs: No Vision needs: Yes Review of Systems Const All systems reviewed & are unremarkable except as noted in HPI and below Reports as per HPI and Reports no additional complaints GI Reports no additional complaints Reports no additional complaints Physical Exam Vital Signs: Last Vital Signs BP 180/100 H 01/20/25 15:12 BMI result Body Mass Index 35.7 Assessment & Plan Assessment & Plan (1) ASCUS with positive high risk HPV cervical: Code(s): R87.610 - Atypical squamous cells of undetermined significance on cytologic smear of cervix (ASC-US); R87.810 - Cervical high risk human papillomavirus (HPV) DNA test positive Category: Medical Plan: Discussed with the patient the pathology results of the colposcopy biopsies & endocervical curettage. Discussed with the patient the sensitivity specificity, positive and negative predictive value in detecting cervical cancer in addition discussed the regression, persistence and progression rates. Recommended co-testing in 12 months, if cytology and or HPV are abnormal will proceed was colposcopy biopsy and endocervical curettage. Instructions given to the patient to schedule a co test appointment in 1 year. All questions answered the patient verbalized understanding. Coding Level of Care Code Est Pt Level 3 (35614) Diagnoses ASCUS with positive high risk HPV cervical R87.610; R87.810
[2025-01-20 15:28] VITALS: BP 156/84
== END 2025-01-20 15:39 | disposition home or self-care (01) ==
LOC: HO.HWS 15:08
PROVIDERS: PCP Internal Medicine; Visit Provider Obstetrics & Gynecology
DX: R87.610 Atypical squamous cells of undetermined significance on cytologic smear of cervix (ASC-US) (principal); R87.810 Cervical high risk human papillomavirus (HPV) DNA test positive
CPT/HCPCS: 99213

== ENCOUNTER → 2025-01-20 15:08 | Outpatient (BNVA) | payer OTHER, SELFPAY | PROVIDERS: PCP Internal Medicine; Visit Provider Obstetrics & Gynecology | DX: R87.610 Atypical squamous cells of undetermined significance on cytologic smear of cervix (ASC-US) (principal); R87.810 Cervical high risk human papillomavirus (HPV) DNA test positive | CPT/HCPCS: 99212 ==

== ENCOUNTER 2025-01-21 12:28 | Outpatient (AMB) | payer OTHER, SELFPAY ==
[2025-01-21 12:31] VITALS: BP 168/92; PULSE 79; O2SAT 98; BMI 36.0
--- NOTE | 2025-01-21 12:31 | MHC.PC.OV ---
Vital Signs 01/21/25 12:31 Height 5 ft 2 in Weight 197 lb BMI 36.0 BP 168/92 H Blood Pressure Location Lt brachial Position Sitting Pulse 79 Pulse Source Pulse Oximeter Pulse Oximetry (%) 98 Oxygen Delivery Method Room Air Intake Visit Reasons: high blood pressure Cto Required: No Accompanied by: Self / Same As Patient Allergies No Known Allergies (No Known Allergies*) Allergy (Verified 01/21/25 13:56) Medication List - Last Reconciled 01/21/25 by Maya Paulson MD betamethasone dipropionate 0.05% 1 appl topical BID diclofenac sodium 1% (Arthritis Pain (diclofenac)) 2 grams topical QID 30 days omeprazole 20 mg PO DAILY 90 days risankizumab-rzaa (Skyrizi) mg subcut Tobacco use date assessed: 01/21/25 Fall risk assessment: No Falls in past year Last assessed Fall Risk: 01/21/25 Dental Screening Dental Screen Date: 01/21/25 Did you have a dental visit in the last 12 months?: Yes Did you have a dental problem in the last 6 months where you did not have access to dental care?: No Was dental information given to patient?: Patient has dentist HPI HPI Comments History of Present Illness Details The patient is a 64-year-old female presenting for evaluation of elevated blood pressure. Her blood pressure has been high for some time, with a reading of 145 mmHg systolic this morning and 160 mmHg systolic in the office. She has no known medication allergies. For psoriasis, she receives an injection and sees a horizontal resaw operator periodically, with her next follow-up scheduled for April 01. She also has a history of eczema, for which she uses a cream, and acid reflux, which is managed with omeprazole. The patient's cholesterol was previously elevated, and she has left knee pain. [facility] Medical History Cervical low risk human papillomavirus (HPV) DNA test positive Psoriasis GERD (gastroesophageal reflux disease) Surgical History History of endometrial ablation Family History Father No problems noted. 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 1. Little interest or pleasure in doing things: several days 2. Feeling down, depressed, or hopeless: not at all 3. Trouble falling or staying asleep, or sleeping too much: not at all 4. Feeling tired or having little energy: not at all 5. Poor appetite or overeating: not at all 6. Feeling bad about yourself - or that you are a failure or have let yourself or your family down: not at all 7. Trouble concentrating on things, such as reading the newspaper or watching television: not at all 8. Moving or speaking so slowly that other people could have noticed. Or the opposite - being so fidgety or restless that you have been moving around a lot more than usual: not at all 9. Thoughts that you would be better off or of hurting yourself in some way: not at all Total score: 1 Depression Screening Interpretation: Negative Depression Screening Done: Yes 40666 - PHQ-9 Billing: Yes Source: Developed by Drs. Reilly Gleason, Carlie Lazar, Mao Melgoza and colleagues, with an educational abby from [employer]. Thrive Questionnaire Date Thrive assessed: 03/22/23 I am a: Patient What is your living situation today?: I have a steady place to live Within the past 12 months, did the food you bought not last and you didn't have the money to get more?: I choose not to answer this question Within the past 12 months, did you worry whether your food would run out before you got money to buy more?: Never true Do you have trouble paying for medicines?: I choose not to answer this question Do you have trouble getting transportation to medical appointments?: No Do you have trouble paying your heating and electricity bill?: No Do you have trouble taking care of your child, family member or friend?: No Do you have trouble with day-to-day activities such as bathing, preparing meals, shopping, managing finances, etc.?: No Are you currently unemployed and looking for a job?: No Are you interested in more education?: Yes Please select the resources that you would like help with: None Currently or been in a relationship where the following occur: I choose not to answer THRIVE Score: 0 AUDIT C Alcohol Use Questionnaire (AUDIT-C) 1. How often do you have a drink containing alcohol?: Never 3. How often do you have six or more drinks on one occasion?: Never Total Score: 0 Score Reviewed/Action Taken: No HANNA-7 AMB Questionnaire HANNA-7 Date HANNA - 7 assessed: 01/21/25 Feeling nervous, anxious, or on edge: 0 = Not at all Not being able to stop or control worryin = Not at all Worrying too much about different things: 0 = Not at all Trouble relaxin = Not at all Being so restless that it is hard to sit still: 0 = Not at all Becoming easily annoyed or irritable: 0 = Not at all Feeling afraid as if something awful might happen: 0 = Not at all Total HANNA-7 score (0-4 normal; 5-9 mild; 10-14 moderate; 15-21 severe): 0 Source: Developed by Drs. Reilly Gleason, Carlie Lazar, Mao Melgoza and colleagues, with an educational abby from [employer]. HANNA-7 Assessment Billing HANNA-7 Assessment Tool: HANNA-7 Assessment 53916 Review of Systems Const All systems reviewed & are unremarkable except as noted in HPI and below Card Denies chest pain at rest, Denies chest pain with activity, Denies edema, Denies irregular heart rhythm, Denies claudication, Denies dyspnea, Denies dyspnea on exertion, Denies orthopnea, Denies paroxysmal nocturnal dyspnea and Denies slow heart rate Resp Denies cough, Denies dyspnea and Denies dyspnea on exertion GI Denies abdominal pain, Denies change in bowel habits, Denies excessive flatus, Denies nausea and Denies vomiting Physical exam (Primary Care) Vital Signs: Last Vital Signs Pulse 79 01/21/25 12:31 BP 168/92 H 01/21/25 12:31 Pulse Ox 98 01/21/25 12:31 Oxygen Delivery Method Room Air 01/21/25 12:31 BMI result Body Mass Index 36.0 BMI Assessment/Plan discussion: High BMI High, discussed plan: lifestyle, weight reduction, dietary and physical activity Tobacco/Smoking Status: Tobacco use Status Tobacco use date assessed 01/21/25 01/21/25 12:35 Patient Tobacco Use Status Former Tobacco user 01/21/25 12:35 Tobacco use type Cigarette 01/21/25 12:35 e-Cigarette/Vaping Use Never Used 01/21/25 12:35 PHQ-9: PHQ-9 Score PHQ-9: Total score 1 01/21/25 14:01 Depression Screening Interpretation: Negative Thrive Assessment: Date of Thrive Assessment Date Thrive assessed 03/22/23 01/21/25 12:35 Currently or been in a relationship where the following occur: I choose not to answer Resp Effort & Inspection: normal respiratory effort Auscultation: clear to auscultation bilaterally Cardio Jugular venous distension: no JVD Rate: regular rate Rhythm: regular rhythm Heart sounds: S1 normal heart sound present and S2 normal heart sound present Extrem General: Yes full ROM Coding Level of Care Code Est Pt Level 3 (36167) Diagnoses GERD (gastroesophageal reflux disease) K21.9 Essential hypertension I10 Left knee pain M25.562 Additional Codes HANNA-7 Assessment Billing - HANNA-7 Assessment Tool: HANNA-7 Assessment 55828 ([id number]) PHQ-9 - 67827 - PHQ-9 Billing: Yes ([id number]) Time Spent (min) 19 Assessment & Plan Assessment & Plan (1) GERD (gastroesophageal reflux disease): Code(s): K21.9 - Gastro-esophageal reflux disease without esophagitis Category: Medical (2) Essential hypertension: Code(s): I10 - Essential (primary) hypertension Category: Medical (3) Left knee pain: Code(s): M25.562 - Pain in left knee Category: Medical Plan Plan 1. Hypertension Due to persistently high blood pressure readings, a new prescription for losartan 25 mg will be started. The prescription will be sent to the [facility] pharmacy. She is advised to monitor her blood pressure and to follow up in two to three weeks to check her response to the medication. 2. Hypercholesterolemia Given her previously elevated cholesterol, fasting labs will be ordered to recheck her levels. 3. Left Knee Pain An X-ray of the left knee will be ordered to evaluate her knee pain. Orders: Orders XR knee LT 2V Today M25.562 - Pain in left knee Comprehensive [place]. Panel Fast Today E78.00 - Pure hypercholesterolemia, unspecified Lipid Panel Today E78.5 - Hyperlipidemia, unspecified Medications: New losartan 25 mg PO DAILY 90 tabs 1RF 90 days celecoxib (Celebrex) 200 mg PO BID PRN 60 caps 0RF pain 30 days
== END 2025-01-21 14:08 | disposition home or self-care (01) ==
LOC: HO.HMCH 12:29
PROVIDERS: PCP Internal Medicine; Visit Provider Internal Medicine
DX: K21.9 Gastro-esophageal reflux disease without esophagitis (principal); I10 Essential (primary) hypertension; M25.562 Pain in left knee

== ENCOUNTER → 2025-01-21 12:28 | Outpatient (BNVA) | payer OTHER, SELFPAY | PROVIDERS: PCP Internal Medicine; Visit Provider Internal Medicine | DX: K21.9 Gastro-esophageal reflux disease without esophagitis (principal); E78.00 Pure hypercholesterolemia, unspecified; M25.562 Pain in left knee; I10 Essential (primary) hypertension; Z13.31 Encounter for screening for depression; Z13.39 Encounter for screening examination for other mental health and behavioral disorders | CPT/HCPCS: 96127; 99212 ==